=== PATIENT | male | born 1945 | race Caucasian/White ===

== ENCOUNTER 2023-05-11 02:03 | Inpatient (IN) | payer MEDICARE, BC, SELFPAY ==
[2023-05-10 20:51] VITALS: BMI 26.3
[2023-05-10 20:54] VITALS: BP 144/92
[2023-05-10 21:15] LABS: % Basophils 0.6 % (0-2); % Eosinophils 1.1 % (0-6); % Immature Granulocytes 0.5 % (0-0.5); % Lymphocytes 15.4 % (20.5-51.1); % Monocytes 9.7 % (1.7-9.3); % Neutrophils 72.7 % (42.2-75.2); Absolute Basophils 0.1 10^3/uL (0-0.2); Absolute Eosinophils 0.1 10^3/uL (0-0.7); Absolute Lymphocytes 1.2 10^3/uL (1.2-3.4); Absolute Monocytes 0.8 10^3/uL (0.1-0.6); Absolute Neutrophils 5.7 10^3/uL (1.4-6.5); Hematocrit 44.7 % (39.0-52.0); Mean Corp Hgb Conc. 33.6 g/dL (33.0-37.0); Mean Corpuscular Hgb 32.3 pg (27.0-31.0); Mean Corpuscular Volume 96.1 fL (80.0-94.0); Nucleated Red Blood Cells % 0 % (-); Platelet Count 222 10^3/uL (130-400); Red Blood Cell Count 4.65 10^6/uL (4.70-6.10); Red Cell Dist. Width 14.5 % (11.5-14.5); White Blood Cell Count 7.9 10^3/uL (4.8-10.8)
[2023-05-10 21:26] LABS: Urine Albumin 3+ (Neg - Trace); Urine Bilirubin 1+ (Negative); Urine Character Clear (Clear); Urine Color Yellow; Urine Glucose Negative (Negative); Urine Ketone 1+ (Negative); Urine Leukocyte 2+ (Negative); Urine Nitrite Negative (Negative); Urine Occult Blood Trace (Negative); Urine Specific Gravity 1.025 (<1.030); Urine Urobilinogen 2+ (Neg - 1+)
[2023-05-10 21:28] LABS: ALT (SGPT) 29 U/L (0-50); AST (SGOT) 37 U/L (17-59); Albumin 3.6 g/dl (3.5-5.0); Alkaline Phosphatase 106 U/L (38-126); Blood Urea Nitrogen 28 mg/dl (9-20); Calcium 9.3 mg/dl (8.4-10.2); Carbon Dioxide 25 mmol/L (22-30); Chloride 103 mmol/L (98-107); Glucose 166 mg/dl (70-99); Potassium 5.2 mmol/L (3.5-5.1); Sodium 137 mmol/L (135-145); Total Bilirubin 1.5 mg/dl (0.2-1.3); eGFR > 60.00
[2023-05-10 21:34] LABS: Urine White Cell 26-30 /HPF (0-5)
[2023-05-10 21:35] LABS: Urine Bacteria Moderate (Negative)
[2023-05-10 21:40] LABS: NT-proBNP 14900 pg/ml; Troponin I 0.021 ng/ml
[2023-05-10 21:56] VITALS: BP 131/87
[2023-05-10 22:00] VITALS: BP 128/93
--- NOTE | 2023-05-10 23:11 | ED.GENMED ---
History of Present Illness
General
Chief Complaint: Breathing Problem
Source: patient
Exam Limitations: none
Time Seen by Provider: 05/10/23 22:16
Travel History
Have you had any contact with someone who has COVID-19?: No
Do you have any symptoms of coronavirus? Fever > 100 degrees, chills, cough, shortness of breath, sore throat, loss of taste or smell, muscle aches, or headache?: No
History of Present Illness
History of Present Illness:
This is a 8 year old male that comes in with Multiple complaints. States that all weekend he had a difficulty time walking and hard to sit down. States that he had lower abd pain. State that Tuesday he was unable to eat and today he felt weak. States
that he was SOB and only able to walk a couple feet. States that he also vomited yesterday and was lightheaded. States that he is urinating frequently but states that he does take Lasix. Denies any fever, chills, chest pain, nausea, diarrhea,
headache, urinary burning.
Past History
Past History
ED Past Medical History: HTN, Hypercholesterolemia and Other (DVT , Sciatic. PNA, )
ED Past Surgical History: Orthopedic (Back surgery for herniated disc) and Other (Hernia)
Social History
Tobacco: Non-smoker
Alcohol: None
Personal:
Living: alone
Review of Systems
Review of Systems
All Other Systems: ROS reviewed and negative except as documented in HPI and ROS
Constitutional: Reports no symptoms; Denies fever or chills
EENT: Reports no symptoms
Respiratory: Reports trouble breathing; Denies cough
Cardiac: Denies chest pain
ABD/GI: Reports abdominal pain (Lower abd pain) and vomiting (Yesterday); Denies nausea or diarrhea
: Reports frequency; Denies dysuria or urgency
Musculoskeletal: Reports no symptoms
Skin: Reports no symptoms
Neurological: Reports weakness and other (Lightheaded when getting up); Denies headache
Psychiatric: Reports no symptoms
Phy Exam
General Physical Exam
General Presentation: no apparent distress
General age: appears stated age
General Skin: warm and dry
General Habitus: elderly
General Mental: alert
General Hydration: appears well hydrated
ENT Exam
ENT Exam: TM's normal, pharynx normal and neck supple
Eye Exam
Eye Exam: EOMI
Cardiovascular Exam
Cardiovascular Exam: regular rate/rhythm and normal peripheral pulses
Pulmonary Exam
Pulmonary Exam: lungs clear, no respiratory distress, no rales, chest non tender, no crackles, no rhonchi, no wheezing and no cough
Gastrointestinal Exam
Gastrointestinal Exam: normal bowel sounds, non tender, soft, no organomegaly, no pulsatile mass and non distended
Musculoskeletal Exam
Musculoskeletal Exam: full ROM and edema (+2 pitting edema of feet to knee's)
Skin Exam
Skin Exam: normal color, warm/dry, no rash, no petechia and other (Nail bed slightly cyanotic)
Psychiatric Exam
Psychiatric Exam: normal mood/affect
Scores
Heart Failure Risk
Heart Failure Risk Score: Not Applicable
Course
Orders/Labs/Results
Orders:
Orders
05/10/23 20:53
Electrocardiogram (*1) Urgent
Reason for Study: Other
Other Reason for Exam: Respiratory Distress
Cardiac Monitoring- Treatment ONCE
EKG- Treatment ONCE
IV Insert/Care/Rem.- Treatment PRN
CR Chest - 2 Views Urgent
Comment:
Reason For Exam: respiratory distress
O2 Therapy [RESP] Urgent
Titrate/Wean O2 to maintain O2 sat greater than (%): 93
Special Instructions: TO MAINTAIN CONTINUOUS O2 SATS >/= 93%
Pulse Ox/cont/shift [RESP] Urgent
Quantity: 1
Special Instructions: continuous pulse ox
05/10/23 21:09
Complete Blood Count/With Diff Urgent
Comprehensive Metabolic Panel Urgent
NT-proBNP Urgent
Troponin I Urgent
Urinalysis Reflex To Culture Urgent
Date Specimen was Collected: 05/10/23
Time Specimen was Collected: 21:05
Urine Microscopic Reflex Cult Urgent
Urine Culture Urgent
BARBARA Source: U
Specimen Description:
Date Specimen was Collected: 05/10/23
Time Specimen was Collected: 21:05
05/10/23 23:02
Lactic Acid Urgent
05/10/23 23:29
COVID-19 Antigen Urgent
Source: Nasal Swab
05/10/23 23:37
CefTRIAXone [Rocephin] 1,000 mg IV NOW STA
Furosemide [Lasix] 40 mg IV NOW STA
05/11/23 00:44
CR Abdomen - 2 Views Urgent
Comment: No need to include chest - already done.
Reason For Exam: Abd Pain / distention
05/11/23 01:43
Admit/Transfer Patient As Directed
Co-Sign Provider:
Level of Care: Inpatient admission
Assign to:: Telemetry
Physician / Group: Jone
Diagnosis: Acute on Chronic HFpEF
Reason for Telemetry: Acute Heart Failure
Date to Stop Telemetry: 05/14/23
Time to Stop Telemetry: 11:00
Reason for Hospitalization: Acute on Chronic HFpEF
Expected length of stay greater than two midnights?: Yes
ELOS- Estimated Length of Stay in days: 2
I certify the patient meets the requirements for IP care: Yes
Code Status As Directed
Resuscitation Status: Full Code
05/11/23 02:08
Troponin I Q6H
Acetaminophen [Tylenol] 650 mg PO Q4HPRN PRN
05/11/23 02:08
Echo 2D MMode Doppler [Echo 2D MMode Color/Doppler] Routine
Reason for Study: CHF
TSH Reflex To Free T4 Routine
Activity As Directed
Activity Level: Ambulate
With Assistance
Bladder Scan As Directed
Follow Bladder Retention/Intermittent Cath Algorithm?: Yes
PRN if no void in __ hours: 6
Frequency: Per Retention Algorithm
If Bladder Scan Result >: 400
then:: Straight cath
EKG with chest pain [ECG as needed] As Directed
ECG as needed for:: Chest Pain
I/O [Intake/ Output] As Directed
Frequency: Per unit guidelines
Orthostatic Vital Signs As Directed
Orthostatic VS Frequency: BID
Straight Cath As Directed
Frequency: Per Retention Algorithm
Additional Instructions: straight cath as needed per acute urinary retention algorithm for 24 hrs
Additional Instructions: for bladder scan greater than 400 mL
Vital Signs As Directed
Frequency: Per unit guidelines
Weight As Directed
Frequency: Daily
Oxygen Therapy [O2 Therapy] [RESP] Routine
Titrate/Wean O2 to maintain O2 sat greater than (%): 94
Ot Eval And Treat Routine
PT Consult [Pt Eval And Treat] Routine
Activity Level: Ambulate
With Assistance
05/11/23 06:00
EKG [Electrocardiogram (*1)] IN AM
Reason for Study: Chest Pain
Basic Metabolic Panel IN AM
Complete Blood Count/No Diff IN AM
05/11/23 08:00
Apixaban [Eliquis] 5 mg PO BID
Furosemide [Lasix] 40 mg IV BID AT 0800,1600
Metoprolol Xl [Toprol Xl] 25 mg PO DAILY
Tamsulosin [Flomax] 0.4 mg PO DAILY
05/11/23 08:08
Troponin I Q6H
05/11/23 14:08
Troponin I Q6H
05/12/23 Breakfast
Regular
At Your Request: Full Participation
Fluid Restriction: 1440 mL/day (48 oz)
05/14/23 11:00
DC Protocol for Telemetry ONCE
Abnormal Lab Results
05/10/23
21:09
RBC 4.65 L 10^6/uL
(4.70-6.10)
MCV 96.1 H fL
(80.0-94.0)
MCH 32.3 H pg
(27.0-31.0)
MPV 11.0 H fL
(7.4-10.4)
Absolute Monos (auto) 0.8 H 10^3/uL
(0.1-0.6)
Lymphocytes % 15.4 L %
(20.5-51.1)
Monocytes % 9.7 H %
(1.7-9.3)
Potassium 5.2 H mmol/L
(3.5-5.1)
BUN 28 H mg/dl
(9-20)
Glucose 166 H mg/dl
(70-99)
Total Bilirubin 1.5 H mg/dl
(0.2-1.3)
Urine Ketones 1+ A
(Negative)
Ur Occult Blood Reflex Trace A
(Negative)
Urine Bilirubin 1+ A
(Negative)
Urine Urobilinogen 2+ A
(Neg - 1+)
Leukocyte Esterase Rfl 2+ A
(Negative)
Urine RBC 3-6 A /HPF
(0-2)
Urine WBC (Reflex) 26-30 A /HPF
(0-5)
Urine Bacteria (Reflex) Moderate A
(Negative)
Urine Albumin (Reflex) 3+ A
(Neg - Trace)
05/10/23 21:09
05/10/23 21:09
Potassium slightly elevated. Dehydration, Glucose nonfasting. Total jarocho slightly elevated. Troponin <0.012, Pro-BNP 14,900, Positive UTI, Lactic acid normal at 1.6
COVID negative
Vital Signs
Initial and Last Documented VS:
Initial Vital Signs
Temp Pulse Resp BP Pulse Ox
98.0 F 85 19 144/92 98
05/10/23 20:54 05/10/23 20:54 05/10/23 20:54 05/10/23 20:54 05/10/23 20:54
Last Documented Vital Signs
Temp Pulse Resp BP Pulse Ox
98.0 F 81 19 139/93 97
05/10/23 20:54 05/11/23 00:30 05/11/23 00:30 05/11/23 00:00 05/11/23 00:30
MDM/Problems Addressed
Differential Diagnosis Includes:
CHF, UTI, COVID
MDM/Problems Addressed:
This is a 78 year old male that comes in with c/o SOB and lower abd pain. States that this started over the weekend and has continued to get worse. States that he is very weak and can hardly walk across the room due to the SOB.
Will get labs, Urine Chest x-ray.
Back into see patient. Explained that he has a urinary tract infection and that with ambulation his pulse ox drops to 86% and patient is very weak. Will admit and give IV antibiotics and IV Lasix as patient chest X-ray may be negative but has
Increased leg edema. Hospitalist notified about admission.
Chronic conditions affecting care:
NA
Acute Exacerbation and/or Progression of Chronic Illness:
NA
*Pulse Oximetry
Patient hypoxic: no
*EKG
Interpreted by ED Provider?: Yes
Heart Rate: 79
Rate: normal
Rhythm: sinus and PVC's
Elco: left axis deviation
Interval: first degree heart block
QRS Pattern: normal QRS
Ischemia: no ischemia
*Coin Machine Collector Supervisor Interpretation
Rate: normal
Heart Rate: 81
Rhythm: sinus and PVC's (Couplets)
*Critical Care Note
Total Time (30-74mins, 75-104mins- exclusive of procedures): Not Applicable
ED Attending Note
-
Portions of this chart may have been created with voice recognition software.� Occasional wrong word or��sound alike� substitutions may have occurred due to the inherent limitations of voice recognition software.
Discharge Plan
Departure
Patient Disposition: Admit
Date of Disposition: 05/10/23
Time of Disposition: 23:43
Admit to: Telemetry
Presentation/result/management discussed w/ accepting MD/DO: Hospitalist
Patient with high blood pressure during this ER visit?: Yes
Condition: Good
Covid-19: Negative COVID-19
Discharge Problem:
Urinary tract infection, SOB (shortness of breath)
Interventions
Interventions:
*Risk Screen - Suicide Last Done: 05/10/23 20:54
*General Assessment Last Done: 05/10/23 20:54
*Neglect/Abuse Screening Last Done: 05/10/23 20:54
ED- Fall Risk Assessment Last Done: 05/10/23 22:55
*ED COVID-19 Vaccine History Last Done: 05/10/23 20:54
ED- Cardiac Assessment Last Done: 05/10/23 22:55
ED- Pulmonary Assessment Last Done: 05/10/23 22:55
[2023-05-10 23:24] LABS: Lactic Acid 1.6 mmol/L (0.7-2.0)
[2023-05-10] MEDS: LASIX 40 MG IV (23:44)
[2023-05-10] MEDS: ROCEPHIN 1000 MG IV (23:44)
[2023-05-10 23:46] VITALS: BP 146/91
[2023-05-11] VITALS (12 sets, daily range): BP systolic 122–148; BP diastolic 71–104; PULSE 96; O2SAT 97; BMI 26.3; BMI 25.8
[2023-05-11 00:41] LABS: COVID-19 Antigen Negative (Negative)
--- NOTE | 2023-05-11 01:49 | HPS.HSE ---
Family Physician
-
Family Physician: Domingo Church
Chief Complaint
-
SOB, Weakness
History of Present Illness
Patient is a 78y M with PMH significant for variable heart block, hypertension and CHFpEF who presents to ED complaining of weakness and dyspnea. Patient was hospitalized here in March and underwent emergency surgery for repair of incarcerated
hernia. He states that he has been feeling fairly well since that time until this past weekend when he began to feel more fatigued. Patient complains of feeling very 'tired' and 'weak' with any activity over the past 3-4 days. Today he went to
the store, but became very weak and tired after walking from his car - so returned home and then called 911.
He denies any chest pain, palpitations, etc.
No cough, fevers / chills.
Patient reports lower abdominal discomfort today and yesterday. Yesterday he induced emesis which he states improved his symptoms briefly.
He reports that he has been moving his bowels and passing flatus without difficulty. He has had no spontaneous N/V.
He denies any urinary complaints.
Patient states that he weighs himself daily and denies any changes in his weight. He has LE edema which he feels is unchanged from his baseline.
Medical History
Past Medical History
Past Medical History: Reports Other
Additional Past Medical History:
Heart Block - Variable Degree
Non-Sustained VT
History of DVT / PE
Hypertension
Chronic HFpEF
Past Surgical History: Reports Other
Additional Past Surgical History:
Ventral Hernia Repair
Incarcerated Incisional Hernia Repair (03/2023)
Lumbar laminectomy
Social History
Tobacco: Non-smoker
Alcohol: None
Drug: None
Family History
Family History: Not pertinent
Allergies / Home Medications
Allergies reflects when Allergies were last updated in [employer].
Home Medications with original date entered in [employer] [facility]
Allergy/Medication List:
Allergies
Allergy/AdvReac Type Severity Reaction Status Date / Time
No Known Allergies Allergy Verified 05/10/23 20:53
Home Medications
apixaban 5 mg tablet (Eliquis) 5 mg PO BID 30 days #60 tabs 07/17/21
furosemide 20 mg tablet 20 mg PO DAILY Fluid Retention/Swelling 03/21/23
losartan 25 mg tablet 25 mg PO DAILY Blood Pressure 03/21/23
metoprolol succinate 25 mg tablet,extended release 24 hr 25 mg PO DAILY Heart Failure 03/21/23
Review of Systems
-
History Source: Patient
A 12 point ROS was completed and negative except as noted: Yes
Constitutional: Reports Fatigue; Denies Fever, Weight Gain, Weight Loss or Chills
EENT: Denies Sore Throat
Respiratory: Reports Trouble Breathing; Denies Cough or Hemoptysis
Cardiac: Denies Chest Pain, Diaphoresis, Palpitations or Syncope
Abdomen/GI: Reports Abdominal Pain and Vomiting; Denies Nausea, Diarrhea, Constipated, Bloody Stools or Black Stools
: Denies Dysuria, Frequency or Flank Pain
Musculoskeletal: Reports Edema; Denies Joint Pain
Neurological: Denies Dizzy or Headache
Psych: Denies Depression or Anxiety
Physical Exam
Vital Signs
Vital Signs
Temp Pulse Resp BP Pulse Ox
98.0 F 81 19 139/93 97
05/10/23 20:54 05/11/23 00:30 05/11/23 00:30 05/11/23 00:00 05/11/23 00:30
Physical Exam
General: Other (78y M in no acute distress.)
HEENT: Moist mucous membranes, PERRLA and Other (No JVD.)
Respiratory: Clear; No Wheezes, Rales or Rhonchi
Cardiac: S1/S2, Regular Rhythm and Murmur (II/ ADAMS)
GI: Other (Softly distended. Mildly tender in the R abdomen. Pos bowel sounds. No rebound / guarding.)
Musculoskeletal: No Clubbing, No Cyanosis and Other (2+ pitting edema b/l LEs with mild chronic venous stasis skin changes.)
Neuro: AO x 3
Laboratory Results
-
05/10/23 21:09
05/10/23 21:09
Laboratory Results
Lactic Acid 1.6 mmol/L (0.7-2.0) 05/10/23 23:02
Total Bilirubin 1.5 mg/dl (0.2-1.3) H 05/10/23 21:09
AST 37 U/L (17-59) 05/10/23 21:09
ALT 29 U/L (0-50) 05/10/23 21:09
Alkaline Phosphatase 106 U/L (38-126) 05/10/23 21:09
Troponin I 0.021 ng/ml 05/10/23 21:09
Impression/Plan
-
A/P: Patient is a 78y M with PMH significant for HTN, CHF and ventral hernia who presents to ED complaining of weakness and dyspnea.
Acute on Chronic HFpEF
- Admit for further evaluation and treatment.
- Patient with abdominal distention, LE edema, marked elevation in BNP and dyspnea with exertion.
- Weight is increased from last month by current measurement (83 to 88kg).
- IV Lasix BID.
- Follow for clinical response.
- Update Echo.
- Consider Cardio evaluation if any significant changes / issues. (Patient had aggressively declined Cardio eval here in the past.)
Non-OH Troponin Elevation
- Likely secondary to the above.
- Note that troponin is decreased from last month when it was presumably elevated due to incarcerated hernia / surgery / etc.
- Follow to [facility].
Variable AV Block
Non-Sustained VT
- Monitor on telemetry for any significant arrhythmia.
- Continue metoprolol.
s/p Incisional Hernia Repair 03/22/23
- Moving bowels / passing flatus.
- Only emesis was induced by patient.
- Obs series in the ED without evidence of obstruction or ileus.
- Diet as tolerated. Follow for any new issues or complaints.
UTI
BPH
- Patient with lower abdominal discomfort / tenderness.
- UA suggestive of infection.
- Continue ceftriaxone pending culture data.
- Bladder scan protocol and cath as needed.
- Begin tamsulosin.
- Follow for any new symptoms / complaints.
Benign Hypertension
Mild Hyperkalemia
- Hold losartan with mild hyperkalemia.
- Follow for changes with diuresis.
- Adjust regimen as needed for BP control.
History of DVT / PE
DVT Prophylaxis
- Continue Eliquis
Code Status: Full
[2023-05-11 03:10] LABS: Troponin I 0.019 ng/ml
[2023-05-11 03:22] LABS: TSH Reflex To Free T4 7.93 uIU/ml (0.47-4.68)
[2023-05-11 03:51] LABS: Free T4 1.37 ng/dl (0.78-2.19)
[2023-05-11 06:14] LABS: Hematocrit 41.9 % (39.0-52.0); Hemoglobin 14.1 g/dL (13.0-18.0); Mean Corp Hgb Conc. 33.7 g/dL (33.0-37.0); Mean Corpuscular Hgb 32.6 pg (27.0-31.0); Mean Corpuscular Volume 96.8 fL (80.0-94.0); Mean Platelet Volume 11.4 fL (7.4-10.4); Platelet Count 210 10^3/uL (130-400); Red Blood Cell Count 4.33 10^6/uL (4.70-6.10); Red Cell Dist. Width 14.2 % (11.5-14.5); White Blood Cell Count 7.8 10^3/uL (4.8-10.8)
[2023-05-11 06:44] LABS: Blood Urea Nitrogen 26 mg/dl (9-20); Calcium 8.7 mg/dl (8.4-10.2); Carbon Dioxide 25 mmol/L (22-30); Chloride 104 mmol/L (98-107); Estimated Creatinine Clearance 84 ml/min; Glucose 102 mg/dl (70-99); Potassium 4.4 mmol/L (3.5-5.1); Sodium 136 mmol/L (135-145); eGFR > 60.00
[2023-05-11] MEDS: ELIQUIS 5 MG PO ×2 (08:08→19:52)
[2023-05-11] MEDS: FLOMAX 0.400000000000000022 MG PO (08:08)
[2023-05-11] MEDS: LASIX 40 MG IV ×2 (08:08→16:44)
[2023-05-11] MEDS: TOPROL XL 25 MG PO (08:08)
--- NOTE | 2023-05-11 08:19 | W.PN.HOSP.TC ---
Today's Communication/Plan
-
Continue diuresis. Plan for echocardiogram
Assessment / Plan
Assessment / Plan
Physical Exam
General: Other (78y M in no acute distress.)
HEENT: Moist mucous membranes, PERRLA and Other (No JVD.)
Respiratory: Clear; No Wheezes, Rales or Rhonchi
Cardiac: S1/S2, Regular Rhythm and Murmur (II/ ADAMS)
GI: Other (Softly distended.� Mildly tender in the R abdomen.� Pos bowel sounds.� No rebound / guarding.)
Musculoskeletal: No Clubbing, No Cyanosis and Other (2+ pitting edema b/l LEs with mild chronic venous stasis skin changes.)
Neuro: AO x 3
A/P:
Acute on Chronic HFpEF
�- Admit for further evaluation and treatment.
�- Patient with abdominal distention, LE edema, marked elevation in BNP and dyspnea with exertion.
�- Weight is increased from last month by current measurement (83 to 88kg).
�- IV Lasix BID.
�- Follow for clinical response.
�- Update Echo.
�- Consider Cardio evaluation if any significant changes / issues. (Patient had aggressively declined Cardio eval here in the past.)
Non-OR Troponin Elevation
�- Likely secondary to the above.
�- Note that troponin is decreased from last month when it was presumably elevated due to incarcerated hernia / surgery / etc.
�- Follow to [facility].
Variable AV Block
Non-Sustained VT
�- Monitor on telemetry for any significant arrhythmia.
�- Continue metoprolol.
s/p Incisional Hernia Repair 03/22/23
�- Moving bowels / passing flatus.
�- Only emesis was induced by patient.
�- Obs series in the ED without evidence of obstruction or ileus.
�- Diet as tolerated.� Follow for any new issues or complaints.
UTI
BPH
�- Patient with lower abdominal discomfort / tenderness.
�- UA suggestive of infection.
�- Continue ceftriaxone pending culture data.
�- Bladder scan protocol and cath as needed.
�- Begin tamsulosin.
�- Follow for any new symptoms / complaints.
Benign Hypertension
Mild Hyperkalemia
�- Hold losartan with mild hyperkalemia.
�- Follow for changes with diuresis.
�- Adjust regimen as needed for BP control.
History of DVT / PE
DVT Prophylaxis
�- Continue Eliquis
Code Status:� Full
Anticipated Discharge: 24 - 48 hours
Subjective/Interval History
-
Date of Service: May 11, 2023
Patient with some generalized weakness. Less shortness of breath. No chest pain
Objective Data
-
Labs:
Laboratory Results
05/10/23 05/11/23
21:09 05:42
WBC 7.9 7.8
Hgb 15.0 14.1
Hct 44.7 41.9
Plt Count 222 210
Sodium 137 136
Potassium 5.2 H 4.4
Chloride 103 104
Carbon Dioxide 25 25
BUN 28 H 26 H
Creatinine 0.9 0.8
Glucose 166 H 102 H
Calcium 9.3 8.7
Total Bilirubin 1.5 H
AST 37
ALT 29
Alkaline Phosphatase 106
Vital Signs:
Vital Signs
Temp Pulse Resp BP Pulse Ox
98.3 F 87 18 135/93 97
05/11/23 07:00 05/11/23 07:00 05/11/23 07:00 05/11/23 07:00 05/11/23 07:00
I&O
05/10/23 05/11/23 05/12/23
06:59 06:59 06:59
Output Total 975 / 975
Balance -975 / -975
Review of Systems
-
All other systems: Reviewed and negative
--- NOTE | 2023-05-11 13:58 | CM ---
CM reviewed medical records. CM met with patient in room. Patient confirmed demographics. Patient lives independently with family and friend for assistance.Patient denies history of VN, SNF. Patient does rely on a cane for ambulation. Patient is
active with his PCP. Patient uses [facility] in [place] for medication services. Patient does not have medication coverage and pays parker for his medications.
PLAN: home no needs noted.
[2023-05-11 15:53] LABS: Troponin I 0.031 ng/ml
--- NOTE | 2023-05-11 17:36 | PTCARENOTE ---
Patient received from ER awake and alert , able to make needs known . Uses cane for ambulatilon. Uses call burroughs appropriately.
[2023-05-11] MEDS: ROCEPHIN 1000 MG IV (23:45)
[2023-05-11] MEDS: STERILE WATER FOR INJECTION 10 ML IV (23:46)
[2023-05-12] VITALS (8 sets, daily range): BP systolic 114–150; BP diastolic 71–102; PULSE 80–98; BMI 24.6
--- NOTE | 2023-05-12 07:41 | W.PN.HOSP.TC ---
Today's Communication/Plan
-
Continue IV Lasix. Cardiology consult
Assessment / Plan
Assessment / Plan
Physical Exam
General: Other (78y M in no acute distress.)
HEENT: Moist mucous membranes, PERRLA and Other (No JVD.)
Respiratory: Few crackles in the bases, no wheezes or rhonchi.
Cardiac: S1/S2, Regular Rhythm and Murmur (II/ ADAMS)
GI: Other (Softly distended.� Mildly tender in the abdomen.� Pos bowel sounds.� No rebound / guarding.)
Musculoskeletal: Bilateral edema. No Clubbing, No Cyanosis
Neuro: AO x 3
A/P:
Acute systolic congestive heart failure:
-IV diuretics, Lasix 40 mg IV twice a day
-Monitor strict I/O
-Monitor daily weight
-Monitor renal function and electrolytes
-Reviewed latest echocardiogram on our system--> EF 15-20% (previously 55%) and grade II Diastolic Dysfunction, mod to severe MR, mod tricuspid reg, pulm htn.
-Continue guideline-directed medical therapy for heart failure (GDMT)
-Follow up clinical response
-Discussed with patient today about having cardiology to see him and he is agreeable for them to evaluate him while inpatient. He does follow-up with cardiology at [place] who instructed him to increase his dose of diuretics prior to admission, but
he has not communicated with him as of late. Patient is not aware that he had abnormal ejection fraction prior to admission.
-Cardiology consult (Vladislav morenoed linen keeper today, Dr Michaels).
Non-MO Troponin Elevation
�- Likely secondary to the above.
�- Note that troponin is decreased from last month when it was presumably elevated due to incarcerated hernia / surgery / etc.
�- Follow to [facility].
Variable AV Block
Non-Sustained VT
�- Monitor on telemetry for any significant arrhythmia.
�- Continue metoprolol.
s/p Incisional Hernia Repair 03/22/23
�- Moving bowels / passing flatus.
�- Only emesis was induced by patient.
�- Obs series in the ED without evidence of obstruction or ileus.
�- Diet as tolerated.� Follow for any new issues or complaints.
UTI
BPH
�- Patient with lower abdominal discomfort / tenderness.
�- UA suggestive of infection.
�- Continue ceftriaxone pending culture data.
�- Bladder scan protocol and cath as needed.
�- Begin tamsulosin.
�- Follow for any new symptoms / complaints.
Benign Hypertension
Mild Hyperkalemia
�- Hold losartan with mild hyperkalemia.
�- Follow for changes with diuresis.
�- Adjust regimen as needed for BP control.
History of DVT / PE
DVT Prophylaxis
�- Continue Eliquis
Code Status:� Full
Total time spent on today's encounter was 52 minutes which included time spent in counseling the patient/family regarding diagnosis and treatment plan as listed above, goals of care, and symptom management. Case was discussed with nursing staff,
specialists, and care coordinators/case management. All labs and imaging personally reviewed by me. Remainder the time spent in detailed review of previous records, lab data, imaging, and other medical provider documentation.
Anticipated Discharge: 24 - 48 hours
Subjective/Interval History
-
Date of Service: May 12, 2023
Patient has less shortness of breath, less tiredness overall. Denies any chest pain.
Objective Data
-
Labs:
Laboratory Results
05/12/23
06:00
WBC Pending
Hgb Pending
Hct Pending
Plt Count Pending
Sodium Pending
Potassium Pending
Chloride Pending
Carbon Dioxide Pending
BUN Pending
Creatinine Pending
Glucose Pending
Calcium Pending
Total Bilirubin Pending
AST Pending
ALT Pending
Alkaline Phosphatase Pending
Vital Signs:
Vital Signs
Temp Pulse Resp BP Pulse Ox
98.0 F 90 18 135/93 98
05/12/23 07:00 05/12/23 07:00 05/12/23 07:00 05/12/23 07:00 05/12/23 07:00
I&O
05/11/23 05/12/23 05/13/23
06:59 06:59 06:59
Intake Total 240 / 240
Output Total 975 / 975 1017 / 1017
Balance -975 / -975 -777 / -777
Review of Systems
-
All other systems: Reviewed and negative
[2023-05-12] MEDS: ELIQUIS 5 MG PO ×2 (08:00→21:31)
[2023-05-12] MEDS: LASIX 40 MG IV ×2 (08:01→15:07)
[2023-05-12] MEDS: TOPROL XL 25 MG PO (08:01)
[2023-05-12] MEDS: FLOMAX 0.400000000000000022 MG PO (08:01)
[2023-05-12 08:55] LABS: % Basophils 0.5 % (0-2); % Eosinophils 2.5 % (0-6); % Immature Granulocytes 0.4 % (0-0.5); % Lymphocytes 12.8 % (20.5-51.1); % Monocytes 9.2 % (1.7-9.3); % Neutrophils 74.6 % (42.2-75.2); Absolute Eosinophils 0.2 10^3/uL (0-0.7); Absolute Lymphocytes 1.1 10^3/uL (1.2-3.4); Absolute Monocytes 0.8 10^3/uL (0.1-0.6); Absolute Neutrophils 6.2 10^3/uL (1.4-6.5); Hematocrit 43.3 % (39.0-52.0); Hemoglobin 14.6 g/dL (13.0-18.0); Mean Corp Hgb Conc. 33.7 g/dL (33.0-37.0); Mean Corpuscular Hgb 32.2 pg (27.0-31.0); Mean Corpuscular Volume 95.6 fL (80.0-94.0); Mean Platelet Volume 11.3 fL (7.4-10.4); Nucleated Red Blood Cells % 0 % (-); Platelet Count 208 10^3/uL (130-400); Red Blood Cell Count 4.53 10^6/uL (4.70-6.10); Red Cell Dist. Width 14.5 % (11.5-14.5); White Blood Cell Count 8.3 10^3/uL (4.8-10.8)
[2023-05-12 09:22] LABS: ALT (SGPT) 26 U/L (0-50); AST (SGOT) 30 U/L (17-59); Albumin 3.5 g/dl (3.5-5.0); Alkaline Phosphatase 114 U/L (38-126); Blood Urea Nitrogen 23 mg/dl (9-20); Calcium 8.7 mg/dl (8.4-10.2); Carbon Dioxide 28 mmol/L (22-30); Chloride 102 mmol/L (98-107); Estimated Creatinine Clearance 67 ml/min; Glucose 128 mg/dl (70-99); Potassium 3.6 mmol/L (3.5-5.1); Sodium 136 mmol/L (135-145); Total Bilirubin 1.6 mg/dl (0.2-1.3); Total Protein 6.6 g/dl (6.3-8.2); eGFR > 60.00
--- NOTE | 2023-05-12 10:13 | CM ---
Patient seen bedside with twin brother in room.
patient denies home care needs.
Per patient, await cardiology input.
Plan: home no needs, brother will transport.
--- NOTE | 2023-05-12 15:39 | CON.CAR ---
Addendum entered and electronically signed by Louise Juarez DO 05/12/23 18:33:
I saw and examined the patient.
The Mail Distribution Clerk's note was reviewed and I agree with the note.
Comment: Seen and examined with cardiac PA. Jamie is a 78 year old male with PMH of recurrent DVT, prior PE, hypertension, intermittent secondary AV block, and chronic HFpEF.� He presented to ER for evaluation of worsening dyspnea and
weakness.� He reported his symptoms are worsening with time and he became symptomatic with even short distances walked and called his cigarette making machine operator without response. Due to progressive symptoms of abdominal pain, shortness of breath and
edema/weakness he presented to the ER for evaluation. In ER, he was noted to have evidence of acute heart failure on exam, weight gain, and elevated proBNP at 14,900.� He was started on IV Lasix and admitted for further workup and evaluation.� He
has been improving symptomatically and his weight has been coming down, back down to baseline.� He had echocardiogram completed on 05/11/2023 which showed EF now reduced at 15 to 20% and cardiology was consulted.� Patient follows with outside
cigarette making machine operator at [facility] and is frustrated that we do not have these records immediately available
General:�Sitting out of bed to chair, awake alert and oriented. On room air
HEENT:�mmm
Respiratory:�Bronchovesicular breath sounds decreased at bases with fine crackles
Cardiac:�Regular, positive S1-S2, 2-3/6 SM
Musculoskeletal:�++ edema
Plan:
-Progressive dyspnea on exertion and exertional fatigue with hypoxic respiratory distress found to be in acute HFrEF
-Echo 05/11/2023 with biventricular dysfunction. LV ejection fraction severely reduced estimated 1520% with grade 2 diastolic dysfunction. RV systolic function also reduced. Severe biatrial enlargement. Restricted posterior mitral valve leaflet
with moderate to severe mitral regurgitation. Moderate tricuspid regurgitation. Estimated pulmonary artery pressure 73 mmHg with severely dilated IVC.� �
-He reportedly had recent echo with his primary cigarette making machine operator at [facility]. Records requested including last office visit and last echocardiogram.
-Fortunately he states his breathing has improved and was able to ambulate around floors with IV diuretics
-Remains volume overloaded; continue IV Lasix 40 mg twice daily.�
-Creatinine stable at 1.0.� Continue to follow with diuresis.�
-Follow daily weights, I&O's.
-He presented with metoprolol succinate 25 mg once daily�will change to carvedilol 3.25 mg BID
-Outpatient medications also included losartan 25 mg daily which was held for hypokalemia on admission, 5.2 which has resolved. Will transition from losartan to Entresto - CM consult for cost
-If renal function/potassium allow consider eventual addition of Aldactone
-Outpatient consideration of SGLT2 inhibitor however will hold adding for now given UTI
-Cardiac troponins not elevated without chest pain�again will await outpatient cardiac records for prior evaluation
-Suspected UTI with negative culture
-Will defer antibiotics to primary
-History of DVT and PE on Eliquis
-He has h/o intermittent AV block and has historically declined PPM.
-Continue to follow on telemetry.
-EKG reviewed and shows SR with 1st degree AV block and PVCS.
Original Note:
Consultation
Consultation Request
Date/Time Consultation Requested: 05/12/2023
Date/Time Consultation Performed: 05/12/2023 at 1530
Requesting Provider: Dr. Lopez
Performing Provider: Dr. Juarez
Reason for Consultation: CHF, CM
Medical History
-
History of Present Illness:
HPI: Jamie is a 78 year old male with PMH of recurrent DVT, prior PE, hypertension, intermittent secondary AV block, and chronic HFpEF. He presented to ER for evaluation of worsening dyspnea and weakness. He reported his symptoms are
worsening with time and he became symptomatic with even short distances walked, prompting ER evaluation. He also noted abdominal pain. In ER, he was noted to have evidence of acute heart failure on exam, weight gain, and elevated proBNP at 14,900.
He was started on IV Lasix and admitted for further workup and evaluation. He has been improving symptomatically and his weight has been coming down, back down to baseline. He had echocardiogram completed on 05/11/2023 which showed EF now reduced
at 15 to 20% and cardiology was consulted. Patient follows with outside cigarette making machine operator at [facility]. At this time, he denies any chest pain, palpitations, dizziness, lightheadedness, or shortness of breath. His lower extremity edema is at baseline.
PMH:
Recurrent DVT 2008, 2009, 2021
h/o PE 2009
HTN
Intermittent 2nd-degree AV block
Chronic HFpEF
Past Medical History
Past Medical History: Other (In HPI)
Past Surgical History: Other (Incarcerated incisional hernia repair 03/2023, lumbar laminectomy)
Social History
Tobacco: Non-Smoker
Alcohol: None
Drug: None
Living: Alone
Employment: Retired
Family History
Family History: Reviewed & Not Pertinent
Allergies / Home Medications
Allergy/AdvReac Type Severity Reaction Status Date / Time
No Known Allergies Allergy Verified 05/10/23 20:53
Medication Instructions Recorded Confirmed Type
apixaban 5 mg tablet (Eliquis) 5 mg PO BID 30 days #60 tabs 07/17/21 05/11/23 Rx
furosemide 20 mg tablet 20 mg PO DAILY Fluid 03/21/23 05/11/23 History
Retention/Swelling
losartan 25 mg tablet 25 mg PO DAILY Blood Pressure 03/21/23 05/11/23 History
metoprolol succinate 25 mg 25 mg PO DAILY Heart Failure 03/21/23 05/11/23 History
tablet,extended release 24 hr
acetaminophen 500 mg tablet 500 mg PO DAILYPRN PRN mild pain 05/11/23 05/11/23 History
(Tylenol Extra Strength)
dvnfheqildow-hkncsevr-uftfaj tablet 1 tab PO DAILY Supplement 05/11/23 05/11/23 History
Review of Systems
-
History Source: Patient
All other systems: Negative unless noted
Physical Exam
Vital Signs
Temp Pulse Resp BP Pulse Ox
97.4 F 92 18 114/71 99
05/12/23 11:25 05/12/23 11:25 05/12/23 11:25 05/12/23 11:25 05/12/23 11:25
Lab Results
05/12/23 08:08
05/12/23 08:08
Troponin I 0.031 ng/ml 05/11/23 15:00
Cqi-H-Dhrsyefgjdi Pept 07608 pg/ml 05/10/23 21:09
Physical Exam
General: Well Developed, Well Nourished and No Apparent Distress
HEENT: Normocephalic, Anicteric and Moist Mucous Membranes
Respiratory: Clear and Non Labored Respirations
Cardiac: S1/S2, Regular Rhythm and Murmur
Musculoskeletal: No Clubbing, No Cyanosis and Edema
Skin: Warm and Dry
Neuro: Nonfocal/Grossly Intact
Psych: Calm
Impression / Plan
-
PCP: Dr. Church
Pathology Assistant: Dr. Muhammad ([facility] Cardiology)
Impression:
Presented with weakness, SOB
Acute on chronic HFrEF
CM, EF 15-20% by echo 05/11/2023
UTI
Recurrent DVT 2008, 2009, 2021
h/o PE 2009
HTN
Intermittent 2nd-degree AV block
Echo 07/17/2021: EF 55 to 60%, mild to moderate MR
Echo 05/03/2023: EF 15 to 20%, mild concentric LVH, severe global hypokinesis, stage II diastolic dysfunction, moderate to severe MR, moderate TR, estimated PAP 73 mmHg
Plan:
-Presented with weakness and shortness of breath. Found to be in acute heart failure.
-Continue IV Lasix 40 mg twice daily. Weight coming down with diuresis. Weight 05/12/2023 back down to 181 pounds.
-Creatinine stable at 1.0. Continue to follow with diuresis. Follow daily weights, I&O's.
-Echo 05/11/2023 noted EF 15 to 20%. This is new compared to last echo in our system. He reportedly had recent echo with his primary cigarette making machine operator at [facility].
-Records requested including last office visit and last echocardiogram.
-He continues on Toprol 25 mg daily. Was also on losartan 25 mg daily on arrival, however this is on hold given borderline hyperkalemia on arrival.
-K improved and down to 3.6 05/12/2023, would consider restarting losartan.
-Continue abx for UTI. Unclear if he has h/o recurrent UTI, may not be ideal candidate for SGLT2 inhibitor. Would consider as OP if he has no recurrent urinary issues.
-Continue Eliquis for h/o DVT and PE
-He has h/o intermittent AV block and has historically declined PPM.
-Continue to follow on telemetry. Overall HRs appear stable.
-EKG reviewed and shows SR with 1st degree AV block and PVCS.
-Troponin wnl but detectable at 0.03.
HPI: Jamie is a 78 year old male with PMH of recurrent DVT, prior PE, hypertension, intermittent secondary AV block, and chronic HFpEF. He presented to ER for evaluation of worsening dyspnea and weakness. He reported his symptoms are
worsening with time and he became symptomatic with even short distances walked, prompting ER evaluation. He also noted abdominal pain. In ER, he was noted to have evidence of acute heart failure on exam, weight gain, and elevated proBNP at 14,900.
He was started on IV Lasix and admitted for further workup and evaluation. He has been improving symptomatically and his weight has been coming down, back down to baseline. He had echocardiogram completed on 05/11/2023 which showed EF now reduced
at 15 to 20% and cardiology was consulted. Patient follows with outside cigarette making machine operator at [facility]. At this time, he denies any chest pain, palpitations, dizziness, lightheadedness, or shortness of breath. His lower extremity edema is at baseline.
Data Reviewed
-
EKG: Tracing Personally Visualized and interpreted
Radiology: Report Reviewed by me
Medical Tests (Nuc Med, Echo etc): Report Reviewed by me
Labs: Labs Reviewed by me
Old Records: Requested
[2023-05-12] MEDS: ROCEPHIN 1000 MG IV (23:51)
[2023-05-12] MEDS: STERILE WATER FOR INJECTION 10 ML IV (23:51)
[2023-05-13] VITALS (8 sets, daily range): BP systolic 114–143; BP diastolic 72–90; PULSE 78–95; BMI 24.3
[2023-05-13] MEDS: COREG 3.125 MG PO ×2 (08:03→13:04)
[2023-05-13] MEDS: ELIQUIS 5 MG PO ×2 (08:03→20:43)
[2023-05-13] MEDS: COZAAR 25 MG PO (08:03)
[2023-05-13] MEDS: LASIX 40 MG IV ×2 (08:04→15:16)
[2023-05-13] MEDS: FLOMAX 0.400000000000000022 MG PO (08:04)
--- NOTE | 2023-05-13 08:12 | W.PN.HOSP.TC ---
Today's Communication/Plan
-
IV Lasix. IV Rocephin
Assessment / Plan
Assessment / Plan
Physical Exam
General: Other (78y M in no acute distress.)
HEENT: Moist mucous membranes, PERRLA and Other (No JVD.)
Respiratory: Few crackles in the bases, no wheezes or rhonchi.
Cardiac: S1/S2, Regular Rhythm and Murmur (II/ [facility])
GI: Other (Softly distended.� Mildly tender in the abdomen.� Pos bowel sounds.� No rebound / guarding.)
Musculoskeletal: Bilateral edema. No Clubbing, No Cyanosis
Neuro: AO x 3
A/P:
Acute systolic congestive heart failure:
-IV diuretics, Lasix 40 mg IV twice a day
-Monitor strict I/O
-Monitor daily weight
-Monitor renal function and electrolytes
-Reviewed latest echocardiogram on our system--> EF 15-20% (previously 55%) and grade II Diastolic Dysfunction, mod to severe MR, mod tricuspid reg, pulm htn.
-Continue guideline-directed medical therapy for heart failure (GDMT)
-Follow up clinical response
-Discussed with patient today about having cardiology to see him and he is agreeable for them to evaluate him while inpatient. He does follow-up with cardiology at [place] (Dr Kem Muhammad, ) who instructed him to increase his dose
of diuretics prior to admission, but he has not communicated with him as of late. Patient is not aware that he had abnormal ejection fraction prior to admission.
-Cardiology consult appreciated.
Non-TN Troponin Elevation
�- Likely secondary to the above.
�- Note that troponin is decreased from last month when it was presumably elevated due to incarcerated hernia / surgery / etc.
�- Follow to peak.
Variable AV Block
Non-Sustained VT
�- Monitor on telemetry for any significant arrhythmia.
�- Continue metoprolol.
s/p Incisional Hernia Repair 03/22/23
�- Moving bowels / passing flatus.
�- Only emesis was induced by patient.
�- Obs series in the ED without evidence of obstruction or ileus.
�- Diet as tolerated.� Follow for any new issues or complaints.
UTI
BPH
�- Patient with lower abdominal discomfort / tenderness.
�- UA suggestive of infection. Urine culture negative so we will dose 1 dose of IV antibiotics tonight and discontinue tomorrow to complete 3 days course.
�- Continue ceftriaxone.
�- Bladder scan protocol and cath as needed.
�- Begin tamsulosin.
�- Follow for any new symptoms / complaints.
Benign Hypertension
Mild Hyperkalemia
�- Hold losartan with mild hyperkalemia.
�- Follow for changes with diuresis.
�- Adjust regimen as needed for BP control.
History of DVT / PE
DVT Prophylaxis
�- Continue Eliquis
Code Status:� Full
Anticipated Discharge: 24 - 48 hours
Subjective/Interval History
-
Date of Service: May 13, 2023
Patient less shortness of breath. Denies any chest pain.
Objective Data
-
Labs:
Laboratory Results
05/13/23
07:41
Sodium Pending
Potassium Pending
Chloride Pending
Carbon Dioxide Pending
BUN Pending
Creatinine Pending
Glucose Pending
Calcium Pending
Vital Signs:
Vital Signs
Temp Pulse Resp BP Pulse Ox
98.3 F 79 20 143/87 96
05/13/23 03:00 05/13/23 03:00 05/13/23 03:00 05/13/23 03:00 05/13/23 03:00
I&O
05/12/23 05/13/23 05/14/23
06:59 06:59 06:59
Intake Total 240 / 240 960 / 960
Output Total 1017 / 1017
Balance -777 / -777 960 / 960
Review of Systems
-
All other systems: Reviewed and negative
[2023-05-13 08:50] LABS: Blood Urea Nitrogen 22 mg/dl (9-20); Calcium 8.4 mg/dl (8.4-10.2); Carbon Dioxide 26 mmol/L (22-30); Chloride 102 mmol/L (98-107); Estimated Creatinine Clearance 74 ml/min; Glucose 105 mg/dl (70-99); Magnesium 1.9 mg/dl (1.6-2.3); Potassium 3.6 mmol/L (3.5-5.1); Sodium 134 mmol/L (135-145); eGFR > 60.00
--- NOTE | 2023-05-13 08:56 | CM ---
Addendum entered by Tigist Warren 05/13/23 14:53:
Patient seen bedside
Per patient possible weekend d/c.
IMM completed.
Denies home care needs.
Plan: home no needs.
Original Note:
CM consult re Entresto BID.
Per [facility] check thru patients listed pharmacy with patients insurance, cost is $30 per month.
--- NOTE | 2023-05-13 10:26 | W.PN.CARDCBS ---
Addendum entered and electronically signed by Louise Juarez DO 05/13/23 14:04:
I saw and examined the patient.
The Hand Driller's note was reviewed and I agree with the note.
Comment: Seen and examined. Patient overall feels better with less shortness of breath and he believes improved edema. We went over recent cardiac testing as well as records received from his outpatient podiatric surgeon with [facility], Dr. Muhammad.
General:�Sitting out of bed to chair, awake alert and oriented.� On room air
HEENT:�mmm
Respiratory:�Bronchovesicular breath sounds decreased at bases with fine crackles
Cardiac:�Regular, positive S1-S2, 2-05/17 SM
Musculoskeletal:�++ edema
Plan:
Presented 05/10/2023 with progressive dyspnea on exertion and exertional fatigue with hypoxic respiratory distress found to be in acute HFrEF
-SOB continues to improved and was able to ambulate around floors with IV diuretics. Weight coming down with diuresis.� Weight 05/13/2023 down to 179 pounds and down 15 lbs total this admission.
-Still slightly volume overloaded; continue IV Lasix 40 mg twice daily but consider transition to oral Lasix in am
-Creatinine stable at 0.9.� Continue to follow with diuresis.�
-Follow daily weights, I&O's.
-Echo 05/11/2023 with biventricular dysfunction.� LV ejection fraction severely reduced estimated 15-20% with grade 2 diastolic dysfunction.� RV systolic function also reduced.� Severe biatrial enlargement.� Restricted posterior mitral valve leaflet
with moderate to severe mitral regurgitation.� Moderate tricuspid regurgitation.� Estimated pulmonary artery pressure 73 mmHg with severely dilated IVC.� �
-Received and reviewed outpatient cardiology records from 04/22/2023 Dr. Muhammad.� Patient did have echocardiogram February 2023 which showed ejection fraction of 20 to 25%.� He also had Lexiscan nuclear stress test which showed normal perfusion.�
Cardiomyopathy was felt to be nonischemic of unclear etiology.
-He presented with metoprolol succinate 25 mg once daily�Changed to carvedilol 3.25 mg BID 05/13/2023, increase to 6.25 mg BID starting 05/13/23
-Outpatient medications also included losartan 25 mg daily which was held for hypokalemia on admission which has resolved.� Losartan resumed 05/12. Patient agreeable to start Entresto. Will start Entresto 26/24 mg BID 05/14/2023.
-Per CM Entresto is $30 a month, pt agreeable to start
-If renal function/potassium allow consider eventual addition of Aldactone as outpt
-Outpatient consideration of SGLT2 inhibitor however will hold adding for now given UTI. Can be considered as outpatient
-Negative Cardiac troponins without chest pain. patient had outpt Lexiscan nuclear stress test February 2023 which was negative for ischemia.� No need to repeat ischemic evaluation at this time
-We discussed continued optimization as an outpatient with his podiatric surgeon as [facility] with repeat assessment of EF on goal-directed medical therapy; if EF remains less than 35% we discussed ICD
-Suspected UTI with negative culture
-Will defer antibiotics to primary
-History of DVT and PE on chronic Eliquis
-He has h/o intermittent AV block and has historically declined PPM.
-No bradycardia arrhythmias seen on color television console monitor.
-Telemetry reviewed and shows SR with 1st degree AV block and frequent PVCS, runs of ventricular bigeminy, ventricular couplets and 4 beats of NSVT
-Will increase Coreg to 6.25 mg BID
-Replete K+ and mag. K+ 3.6, mag 1.9. Keep K+ >4, mag >2
Original Note:
Today's Communication / Plan
-
-Increase Coreg to 6.25 mg BID
-Replete K+ and mag
-Continue diuresis, consider transition to oral Lasix in next 24 hours
-Transitioning Losartan to Entresto on 05/14/23
Impression / Plan
-
PCP: Dr. Church
Modern Dancer: Dr. Muhammad ([facility] Cardiology)
Impression:
Presented 05/10/2023 with weakness, SOB
Acute on chronic HFrEF, proBNP 14,900
UTI
CM, EF 15-20% by echo 05/11/2023
Recurrent DVT 2008, 2009, 2021
h/o PE 2009
HTN
Intermittent 2nd-degree AV block
Echo 07/17/2021: EF 55 to 60%, mild to moderate MR
Echo 02/2023 ([facility]): EF 20-25% with mod-severe MR, mod TR, RSVP 60 mmhg
Echo 05/11/2023: EF 15 to 20%, mild concentric LVH, severe global hypokinesis, stage II diastolic dysfunction, moderate to severe MR, moderate TR, estimated PAP 73 mmHg
Lexiscan nuclear stress test 02/2023([facility]): normal perfusion with severely decreased EF
Plan:
-Presented 05/10/2023 with progressive dyspnea on exertion and exertional fatigue with hypoxic respiratory distress found to be in acute HFrEF
-SOB continues to improved and was able to ambulate around floors with IV diuretics. Weight coming down with diuresis. Weight 05/13/2023 down to 179 pounds and down 15 lbs total this admission.
-Still slightly volume overloaded; continue IV Lasix 40 mg twice daily but consider transition to oral Lasix in am
-Creatinine stable at 0.9.� Continue to follow with diuresis.�
-Follow daily weights, I&O's.
-Echo 05/11/2023 with biventricular dysfunction.� LV ejection fraction severely reduced estimated 15-20% with grade 2 diastolic dysfunction.� RV systolic function also reduced.� Severe biatrial enlargement.� Restricted posterior mitral valve leaflet
with moderate to severe mitral regurgitation.� Moderate tricuspid regurgitation.� Estimated pulmonary artery pressure 73 mmHg with severely dilated IVC.� �
-Received and reviewed outpatient cardiology records from 04/22/2023 Dr. Muhammad. Patient did have echocardiogram February 2023 which showed ejection fraction of 20 to 25%. He also had Lexiscan nuclear stress test which showed normal perfusion.
Cardiomyopathy was felt to be nonischemic of unclear etiology.
-He presented with metoprolol succinate 25 mg once daily�Changed to carvedilol 3.25 mg BID 05/13/2023, increase to 6.25 mg BID starting 05/13/23
-Outpatient medications also included losartan 25 mg daily which was held for hypokalemia on admission which has resolved.� Losartan resumed 05/12. Patient agreeable to start Entresto. Will start Entresto 26/24 mg BID 05/14/2023.
-Per CM Entresto is $30 a month, pt agreeable to start
-If renal function/potassium allow consider eventual addition of Aldactone as outpt
-Outpatient consideration of SGLT2 inhibitor however will hold adding for now given UTI. Can be considered as outpatient
-Negative Cardiac troponins without chest pain. patient had outpt Lexiscan nuclear stress test February 2023 which was negative for ischemia. No need to repeat ischemic evaluation at this time
-Suspected UTI with negative culture
-Will defer antibiotics to primary
-History of DVT and PE on chronic Eliquis
-He has h/o intermittent AV block and has historically declined PPM.
-Continue to follow on telemetry with starting Coreg
-EKG reviewed and shows SR with 1st degree AV block and frequent PVCS, runs of ventricular bigeminy, ventricular couplets and 4 beats of NSVT
-Will increase Coreg to 6.25 mg BID
-Replete K+ and mag. K+ 3.6, mag 1.9. Keep K+ >4, mag >2
-I did discuss ICD with him. He does not seem opposed to this but would prefer to talk to his outpatient podiatric surgeon and not have implanted this admission.
HPI: Jamie is a 78 year old male with PMH of recurrent DVT, prior PE, hypertension, intermittent secondary AV block, and chronic HFpEF. He presented to ER for evaluation of worsening dyspnea and weakness. He reported his symptoms are
worsening with time and he became symptomatic with even short distances walked, prompting ER evaluation. He also noted abdominal pain. In ER, he was noted to have evidence of acute heart failure on exam, weight gain, and elevated proBNP at 14,900.
He was started on IV Lasix and admitted for further workup and evaluation. He has been improving symptomatically and his weight has been coming down, back down to baseline. He had echocardiogram completed on 05/11/2023 which showed EF now reduced
at 15 to 20% and cardiology was consulted. Patient follows with outside podiatric surgeon at [facility]. At this time, he denies any chest pain, palpitations, dizziness, lightheadedness, or shortness of breath. His lower extremity edema is at baseline.
Progress Note - Modern Dancer
Subjective
Date of Service: May 13, 2023
Patient seen and examined. Feeling well. Able to walk the halls, ambulate with improved SOB and edema. Eager to go home soon
Objective
Labs:
05/12/23 08:08
05/13/23 07:41
Labs
Hgb 14.6 g/dL (13.0-18.0) 05/12/23 08:08
Hct 43.3 % (39.0-52.0) 05/12/23 08:08
Plt Count 208 10^3/uL (130-400) 05/12/23 08:08
Sodium 134 mmol/L (135-145) L 05/13/23 07:41
Potassium 3.6 mmol/L (3.5-5.1) 05/13/23 07:41
BUN 22 mg/dl (9-20) H 05/13/23 07:41
Creatinine 0.9 mg/dL (0.7-1.3) 05/13/23 07:41
Glucose 105 mg/dl (70-99) H 05/13/23 07:41
Troponins
05/10/23 05/11/23 05/11/23
21:09 02:19 08:13
Troponin I 0.021 0.019 0.030 D
05/11/23
15:00
Troponin I 0.031
Vital Signs and I&O:
Vital Signs
Temp Pulse Resp BP Pulse Ox
97.5 F 81 24 140/90 100
05/13/23 07:22 05/13/23 07:22 05/13/23 07:22 05/13/23 07:22 05/13/23 08:05
Vital Signs
Temp Pulse Resp BP Pulse Ox
97.5 F 81 24 140/90 100
05/13/23 07:22 05/13/23 07:22 05/13/23 07:22 05/13/23 07:22 05/13/23 08:05
Intake & Output
05/11/23 05/12/23 05/13/23 05/14/23
06:59 06:59 06:59 06:59
Intake Total 240 / 240 960 / 960
Output Total 975 / 975 1017 / 1017
Balance -975 / -975 -777 / -777 960 / 960
Physical Exam
Physical Exam
GEN: No distress, awake, Ox3
HEENT: supple, anicteric, mmm
LUNGS:crackles at left base with occasional faint exp wheeze
CV: Reg with some ectopy, S1/S2, 2-6/6 syst LSB murmur, no rubs or gallops
ABD: soft, BS+, NT/ND
EXT: +1 edema on right, +2 edema on left with skin changes consistent with chronic venous stasis
NEURO: Gross non-focal
SKIN: No rash, warm, dry
[2023-05-13] MEDS: MAGNESIUM OXIDE 500 MG PO (11:18)
[2023-05-13] MEDS: KCL 20 MEQ PO (11:18)
--- NOTE | 2023-05-13 17:33 | PTCARENOTE ---
Pt had 22 beat run of V-tach. Pt was sleeping and asymptomatic. Dr. Michaels made aware and electrolytes are being drawn now.
[2023-05-13 18:07] LABS: Carbon Dioxide 30 mmol/L (22-30); Chloride 96 mmol/L (98-107); Potassium 4.2 mmol/L (3.5-5.1); Sodium 136 mmol/L (135-145)
[2023-05-13] MEDS: COREG 6.25 MG PO (20:43)
[2023-05-14] MEDS: ROCEPHIN 1000 MG IV (01:07)
[2023-05-14] MEDS: STERILE WATER FOR INJECTION 10 ML IV (01:07)
[2023-05-14 03:37] VITALS: BP 127/82
[2023-05-14 06:00] VITALS: BMI 24.2
[2023-05-14 07:00] VITALS: BP 127/73
[2023-05-14 09:18] LABS: Blood Urea Nitrogen 25 mg/dl (9-20); Calcium 8.6 mg/dl (8.4-10.2); Carbon Dioxide 31 mmol/L (22-30); Chloride 99 mmol/L (98-107); Estimated Creatinine Clearance 84 ml/min; Glucose 149 mg/dl (70-99); Potassium 3.5 mmol/L (3.5-5.1); Sodium 137 mmol/L (135-145); eGFR > 60.00
[2023-05-14] MEDS: ELIQUIS 5 MG PO (09:54)
[2023-05-14] MEDS: ENTRESTO 24 MG/26 MG 1 TAB PO (10:03)
[2023-05-14] MEDS: FLOMAX 0.400000000000000022 MG PO (10:03)
[2023-05-14] MEDS: COREG 6.25 MG PO (10:04)
[2023-05-14] MEDS: LASIX IV (10:06)
--- NOTE | 2023-05-14 10:56 | W.PN.HOSP.TC ---
Today's Communication/Plan
-
Discharge planning today
Assessment / Plan
Assessment / Plan
Physical Exam
General: Other (78y M in no acute distress.)
HEENT: Moist mucous membranes, PERRLA and Other (No JVD.)
Respiratory: No crackles, no wheezes or rhonchi.
Cardiac: S1/S2, Regular Rhythm and Murmur (II/ ADAMS)
GI: Other (Softly distended.� Mildly tender in the abdomen.� Pos bowel sounds.� No rebound / guarding.)
Musculoskeletal: Bilateral edema. No Clubbing, No Cyanosis
Neuro: AO x 3
A/P:
Acute systolic congestive heart failure:
-IV diuretics, Lasix 40 mg IV twice a day--> changed to oral diuretics today. Discussed with cardiology and they cleared him for discharge today
-Monitor strict I/O
-Monitor daily weight
-Monitor renal function and electrolytes
-Reviewed latest echocardiogram on our system--> EF 15-20% (previously 55%) and grade II Diastolic Dysfunction, mod to severe MR, mod tricuspid reg, pulm htn.
-Continue guideline-directed medical therapy for heart failure (GDMT)--> on Coreg 6.25 mg twice a day and Entresto 24/26 mg twice a day.
-Follow up clinical response
-Discussed with patient today about having cardiology to see him and he is agreeable for them to evaluate him while inpatient. He does follow-up with cardiology at [place] (Dr Kem Muhammad, ) who instructed him to increase his dose
of diuretics prior to admission, but he has not communicated with him as of late. Patient is not aware that he had abnormal ejection fraction prior to admission.
-Cardiology consult appreciated.
Non-VA Troponin Elevation
�- Likely secondary to the above.
�- Note that troponin is decreased from last month when it was presumably elevated due to incarcerated hernia / surgery / etc.
�- Follow to [facility].
Variable AV Block
Non-Sustained VT
�- Monitor on telemetry for any significant arrhythmia.
�- Continue metoprolol.
s/p Incisional Hernia Repair 03/22/23
�- Moving bowels / passing flatus.
�- Only emesis was induced by patient.
�- Obs series in the ED without evidence of obstruction or ileus.
�- Diet as tolerated.� Follow for any new issues or complaints.
UTI
BPH
�- Patient with lower abdominal discomfort / tenderness.
�- UA suggestive of infection. Urine culture negative so we will dose 1 dose of IV antibiotics tonight and discontinue tomorrow to complete 3 days course.
�- Continue ceftriaxone.
�- Bladder scan protocol and cath as needed.
�- Begin tamsulosin.
�- Follow for any new symptoms / complaints.
Benign Hypertension
Mild Hyperkalemia
�- Held losartan with mild hyperkalemia but now changed to Entresto for heart failure.
�- Follow for changes with diuresis.
�- Adjust regimen as needed for BP control.
History of DVT / PE
DVT Prophylaxis
�- Continue Eliquis
Code Status:� Full
Anticipated Discharge: Today
Subjective/Interval History
-
Date of Service: May 14, 2023
Patient has any chest pain or shortness of breath. Leg edema is less. Afebrile
Objective Data
-
Labs:
Laboratory Results
05/14/23
08:27
Sodium 137
Potassium 3.5
Chloride 99
Carbon Dioxide 31 H
BUN 25 H
Creatinine 0.8
Glucose 149 H
Calcium 8.6
Vital Signs:
Vital Signs
Temp Pulse Resp BP Pulse Ox
98.0 F 77 18 140/74 96
05/14/23 07:00 05/14/23 10:04 05/14/23 07:00 05/14/23 10:04 05/14/23 07:00
I&O
05/13/23 05/14/23 05/15/23
06:59 06:59 06:59
Intake Total 960 / 960 240 / 240
Balance 960 / 960 240 / 240
[2023-05-14 11:00] VITALS: BP 118/68; BP 127/75; BP 130/82; PULSE 76; PULSE 77
--- NOTE | 2023-05-14 11:56 | W.PN.CARDCBS ---
Addendum entered and electronically signed by Louise Juarez DO 05/14/23 18:22:
Patient signed out AMA prior to my assessment
Outpatient medications reviewed with cardiac PA
Patient has been previously instructed to follow-up with [facility] cardiology and my nurse practitioner had left a message for them on their machine
Original Note:
Today's Communication / Plan
-
Transition to oral Lasix 40 mg BID
New to Entresto in place of Losartan
New to Coreg in place of Toprol
Needs BMP in 1 week
Needs follow up with Dr. Muhammad ([facility]) in 1-2 weeks
Impression / Plan
-
PCP: Dr. Church
Heel Brusher: Dr. Muhammad ([facility] Cardiology)
Impression:
Presented 05/10/2023 with weakness, SOB
Acute on chronic HFrEF, proBNP 14,900
UTI
CM, EF 15-20% by echo 05/11/2023
Recurrent DVT 2008, 2009, 2021
h/o PE 2009
HTN
Intermittent 2nd-degree AV block
Echo 07/17/2021: EF 55 to 60%, mild to moderate MR
Echo 02/2023 ([facility]): EF 20-25% with mod-severe MR, mod TR, RSVP 60 mmhg
Echo 05/11/2023: EF 15 to 20%, mild concentric LVH, severe global hypokinesis, stage II diastolic dysfunction, moderate to severe MR, moderate TR, estimated PAP 73 mmHg
Lexiscan nuclear stress test 02/2023([facility]): normal perfusion with severely decreased EF
Plan:
-Presented 05/10/2023 with progressive dyspnea on exertion and exertional fatigue with hypoxic respiratory distress found to be in acute HFrEF
-SOB continues to improved and was able to ambulate around floors
-Weight coming down with diuresis. Weight 05/13/2023 down to 179 pounds and down 16 lbs total this admission.
-Patient refused an IV Lasix and wants to go home. Transition to oral Lasix 40 mg BID as outpt
-Creatinine stable at 0.8.��
-Needs BMP in 1 week as outpt
-Echo 05/11/2023 with biventricular dysfunction.� LV ejection fraction severely reduced estimated 15-20% with grade 2 diastolic dysfunction.� RV systolic function also reduced.� Severe biatrial enlargement.� Restricted posterior mitral valve leaflet
with moderate to severe mitral regurgitation.� Moderate tricuspid regurgitation.� Estimated pulmonary artery pressure 73 mmHg with severely dilated IVC.� �
-Received and reviewed outpatient cardiology records from 04/22/2023 Dr. Muhammad. Patient did have echocardiogram February 2023 which showed ejection fraction of 20 to 25%. He also had Lexiscan nuclear stress test which showed normal perfusion.
Cardiomyopathy was felt to be nonischemic of unclear etiology.
-He presented with metoprolol succinate 25 mg once daily�Changed to carvedilol 3.25 mg BID 05/13/2023, increase to 6.25 mg BID starting 05/13/23
-Stop outpt Losartan and start Entresto 26/24 mg BID 05/14/2023
-Per CM Entresto is $30 a month, pt agreeable to start
-If renal function/potassium allow consider eventual addition of Aldactone as outpt
-Outpatient consideration of SGLT2 inhibitor however will hold adding for now given UTI. Can be considered as outpatient
-Negative Cardiac troponins without chest pain. patient had outpt Lexiscan nuclear stress test February 2023 which was negative for ischemia. No need to repeat ischemic evaluation at this time
-Called outpt computer science teacher office 05/13/23 to arrange follow up and LVM but they never called back. Pt aware he needs f/u in 7-10 days
-Suspected UTI with negative culture
-Will defer antibiotics to primary
-History of DVT and PE on chronic Eliquis
-He has h/o intermittent AV block and has historically declined PPM.
-Continue to follow on telemetry with starting Coreg
-EKG reviewed and shows SR with 1st degree AV block and frequent PVCS, ventricular couplets. Ectopy seems to be improving with increased Coreg 6.25 mg BID (dose increased 05/13/2023).
-Replete K+ and mag. K+ 3.6, mag 1.9. Keep K+ >4, mag >2
-Given reduced EF would continue GDMT x 3 months and if EF still reduced then consider ICD implant.
-I did discuss ICD with him. He does not seem opposed to this but would prefer to talk to his outpatient computer science teacher and not have implanted this admission.
HPI: Jamie is a 78 year old male with PMH of recurrent DVT, prior PE, hypertension, intermittent secondary AV block, and chronic HFpEF. He presented to ER for evaluation of worsening dyspnea and weakness. He reported his symptoms are
worsening with time and he became symptomatic with even short distances walked, prompting ER evaluation. He also noted abdominal pain. In ER, he was noted to have evidence of acute heart failure on exam, weight gain, and elevated proBNP at 14,900.
He was started on IV Lasix and admitted for further workup and evaluation. He has been improving symptomatically and his weight has been coming down, back down to baseline. He had echocardiogram completed on 05/11/2023 which showed EF now reduced
at 15 to 20% and cardiology was consulted. Patient follows with outside computer science teacher at [facility]. At this time, he denies any chest pain, palpitations, dizziness, lightheadedness, or shortness of breath. His lower extremity edema is at baseline.
Progress Note - Heel Brusher
Subjective
Date of Service: May 14, 2023
Patient seen and examined. Reports that his SOB has improved. He did not sleep well last night due to the noises and is adamant that he wants to go home.
Per nursing he refused IV Lasix this am as it makes him pee and he wants to go home
Objective
Labs:
05/12/23 08:08
05/14/23 08:27
Labs
Hgb 14.6 g/dL (13.0-18.0) 05/12/23 08:08
Hct 43.3 % (39.0-52.0) 05/12/23 08:08
Plt Count 208 10^3/uL (130-400) 05/12/23 08:08
Sodium 137 mmol/L (135-145) 05/14/23 08:27
Potassium 3.5 mmol/L (3.5-5.1) 05/14/23 08:27
BUN 25 mg/dl (9-20) H 05/14/23 08:27
Creatinine 0.8 mg/dL (0.7-1.3) 05/14/23 08:27
Glucose 149 mg/dl (70-99) H 05/14/23 08:27
Troponins
05/11/23
15:00
Troponin I 0.031
Vital Signs and I&O:
Vital Signs
Temp Pulse Resp BP Pulse Ox
98.0 F 77 18 140/74 96
05/14/23 07:00 05/14/23 10:04 05/14/23 07:00 05/14/23 10:04 05/14/23 07:00
Vital Signs
Temp Pulse Resp BP Pulse Ox
98.0 F 77 18 140/74 96
05/14/23 07:00 05/14/23 10:04 05/14/23 07:00 05/14/23 10:04 05/14/23 07:00
Intake & Output
05/12/23 05/13/23 05/14/23 05/15/23
06:59 06:59 06:59 06:59
Intake Total 240 / 240 960 / 960 240 / 240
Output Total 1017 / 1017
Balance -777 / -777 960 / 960 240 / 240
Physical Exam
Physical Exam
GEN: No distress, awake, Ox3
HEENT: supple, anicteric, mmm
LUNGS: CTA bilaterally
CV: Reg, S1/S2, 2-6/6 syst LSB murmur, no rubs or gallops
ABD: soft, BS+, NT/ND
EXT: +1 edema bilaterally with skin changes consistent with chronic venous stasis
NEURO: Gross non-focal
SKIN: No rash, warm, dry
--- NOTE | 2023-05-14 12:15 | PTCARENOTE ---
Assumed care of pt from previous nurse. Pt denies pain. pt is on tele running nsr, bbb, prolonged qt, first degree HB. Pt refusing lasix, wants to sign out AMA, despite education pt would not take lasix. Agreed to wait and see rounding physicians
before deciding to AMA, cardiology and hospitalist TT, in to see pt, most likely will coordinate dc for today. call burroughs is within reach, pt rings flor, will cont to monitor.
[2023-05-14] MEDS: KCL 40 MEQ PO (13:11)
[2023-05-14] MEDS: LASIX 40 MG PO (13:11)
--- NOTE | 2023-05-14 13:24 | W.DCSUMMARY ---
Discharge Summary
Discharge Data
Date of Admission: 05/11/23
Date of Discharge: 05/14/23
-
Pending Results: No
Hospital Course
Patient 78 years old male with history of recurrent DVT, prior PE, hypertension, intermittent secondary AV block, chronic heart failure presented to the hospital shortness of breath generalized found to be in acute heart failure. He had a follow-up
echocardiogram that revealed severe ejection fraction decreased to 15 to 20% and grade 2 diastolic dysfunction as well as moderate to severe mitral regurgitation and moderate tricuspid regurgitation with pulmonary hypertension findings. Cardiology
was consulted. He was diuresed intravenously aggressively. Cardiology adjusted his cardiac medications for heart failure. Cardiology had records from outpatient and he just had a nuclear stress test as outpatient that showed normal perfusion so
his cardiomyopathy was felt to be nonischemic of unclear etiology. Cardiology did not recommend further inpatient cardiac testing. Patient improved overall. He has been switched to oral diuretics. Cardiology cleared her for discharge today on
05/13. Patient also was treated for possible urinary tract infection but since urine cultures were nonsignificant growth his antibiotics was treated only while inpatient and he does not need any further antibiotics upon discharge. He has remained
afebrile and hemodynamically stable. He will be discharged in stable condition today.
Discharge duration: 36 minutes
Discharge Plan
-
Patient Disposition: Home (Routine Discharge)
Discharge Diagnosis/Procedures: Acute systolic congestive heart failure. Nonmyocardial infarction troponin elevation. Probable urinary tract infection. History of intermittent second-degree AV block.
Diet: Low Cholesterol, Low Sodium and Restrict fluids to 48 oz
Activity: As tolerated
Driving Restrictions: As prior to admission
Blood Work: PCP to order BMP in 1 week
Specialty Instructions: Weigh Daily- Call MD for wt gain/loss 3 lbs overnight/5 lbs in 1 week
Instructions: *PCP/Other Client Relationship Consultant Heart Failure Instructions
Referrals:
Domingo Church MD [Family Provider] - in less than 1 week
Kem Muhammad MD [Non-Admitting Privileges] - in one to two weeks
Scheiring,Louise, DO [Active] - in two to four weeks
Prescriptions:
New
carvedilol 6.25 mg Tablet
6.25 mg PO BID 30 Days Qty: 60 0RF
Entresto 24-26 mg Tablet
1 tab PO BID 30 Days Qty: 60 0RF
furosemide 40 mg Tablet
40 mg PO BID AT 0800,1600 30 Days Qty: 60 0RF
tamsulosin 0.4 mg Capsule
0.4 mg PO DAILY 30 Days Qty: 30 0RF
Continued
Eliquis 5 MG tablet
5 mg PO BID 30 Days Qty: 60 0RF
acetaminophen [Tylenol Extra Strength] 500 mg Tablet
500 mg PO DAILYPRN PRN (Reason: mild pain)
[id number] Tablet
1 tab PO DAILY
Discontinued
losartan 25 mg tablet
25 mg PO DAILY
furosemide 20 mg tablet
20 mg PO DAILY
metoprolol succinate 25 mg tablet extended release 24 hr
25 mg PO DAILY
Discharge Orders:
Discharge Patient (As Directed); Ordered 05/14/23
Ordered By: Jacek Lopez
Discharge Date and Time
Discharge Date/Time: 05/14/23 15:05
--- NOTE | 2023-05-14 14:11 | CM ---
Plan: home no needs.
--- NOTE | 2023-05-14 14:27 | PTCARENOTE ---
Pt dc to home, escorted to nephews waiting car via w/c. DC instructions reviewed and paperwork provided. IV removed, tele removed.
== END 2023-05-14 15:05 | disposition home or self-care (01) | DRG 291 ==
LOC: 4 WEST ACU 02:03
PROVIDERS: Clinical Nurse Specialist Family Health; Emergency Medicine; ADMITTING PHYSICIAN Hospitalist; ATTENDING PHYSICIAN Hospitalist; CONSULT PHYSICIAN Internal Medicine Cardiovascular Disease; EMERGENCY PHYSICIAN Emergency Medicine; FAMILY PHYSICIAN Family Medicine
DX: I11.0 Hypertensive heart disease with heart failure (principal); I50.23 Acute on chronic systolic (congestive) heart failure; I47.20 Ventricular tachycardia, unspecified; N39.0 Urinary tract infection, site not specified; E78.00 Pure hypercholesterolemia, unspecified; I08.1 Rheumatic disorders of both mitral and tricuspid valves; I44.1 Atrioventricular block, second degree; N40.0 Benign prostatic hyperplasia without lower urinary tract symptoms; E87.5 Hyperkalemia; R09.02 Hypoxemia; R79.89 Other specified abnormal findings of blood chemistry; E86.0 Dehydration; Z86.718 Personal history of other venous thrombosis and embolism; Z87.01 Personal history of pneumonia (recurrent); Z11.52 Encounter for screening for COVID-19; Z79.01 Long term (current) use of anticoagulants; Z86.711 Personal history of pulmonary embolism
CPT/HCPCS: 71046; 74019; 80048; 80051; 80053; 81003; 81015; 83605; 83735; 83880; 84439; 84443; 84484; 85025; 85027; 87086; 87811; 93005; 93306; 96374; 96375; 97116; 97162; 99285